=== PATIENT | female | born 1985 | race American Indian/Alaskan Native ===

== ENCOUNTER 2018-05-18 11:54 | Day surgery (SDC) | payer MEDICAID ==
[2018-05-18] MEDS ORDERED: TORADOL IV PRN (13:45)
[2018-05-18] MEDS ORDERED: DEMEROL IV PRN (13:45)
[2018-05-18] MEDS ORDERED: ZOFRAN IV PRN (13:45)
--- NOTE | 2018-05-18 13:46 | Anesthesia Day of Surgery ---
Anesthesia Day of Surgery - Day of Surgery Patient Examined: Yes Patient H&P Reviewed: Yes Patient is NPO: Yes
--- NOTE | 2018-05-18 13:46 | Anesthesia Consultation ---
Anesthesia Consult and Med Hx Date of service: 05/18/18 - Airway Anesthetic Teeth Evaluation: Good ROM Head & Neck: Adequate Mental/Hyoid Distance: Adequate Mallampati Class: Class I Intubation Access Assessment: Good - Pulmonary Exam CTA: Yes - Cardiac Exam Cardiac Exam: RRR - Pre-Operative Health Status ASA Pre-Surgery Classification: ASA1 Proposed Anesthetic Plan: General (GA with LMA ok) - Pulmonary Hx Smoking: No Hx Asthma: Yes ( CHILD ONLY) Hx Sleep Apnea: No (GRIFFIN PRE SCREEN NEGATIVE) - Cardiovascular System Hx Hypertension: No - Other Systems Hx Cancer: No
[2018-05-18] MEDS ORDERED: LACTATED RINGERS 1,000 ML IV SCH (14:00)
[2018-05-18] MEDS ORDERED: VERSED IV NR (14:00)
[2018-05-18] MEDS ORDERED: DILAUDID IV PRN (14:36)
[2018-05-18] MEDS ORDERED: SUBLIMAZE ONE (15:16)
[2018-05-18] MEDS ORDERED: XYLOCAINE MPF 2% ONE ×2 (15:16→16:05)
[2018-05-18] MEDS ORDERED: DIPRIVAN 10 MG/ML IV ONE (15:17)
[2018-05-18] MEDS ORDERED: TORADOL ONE (15:19)
[2018-05-18] MEDS ORDERED: ZOFRAN ONE (15:19)
[2018-05-18] MEDS ORDERED: DECADRON ONE (15:19)
[2018-05-18] MEDS ORDERED: NACL 0.9% IR ONE (16:00)
[2018-05-18] MEDS: DILAUDID IV PRN ×2 (16:40→16:55)
--- NOTE | 2018-05-18 16:48 | Post Anesthesia Evaluation ---
- Post Anesthesia Evaluation Patient Participated: Yes Airway Patent: Yes Stable Respiratory Function: Yes Nausea/Vomiting: No Temp > 96.8F: Yes Pain Manageable: Yes Adequeate Hydration: Yes Anesthesia Complications: No
--- NOTE | 2018-05-18 17:15 | Operative Report ---
Operative Report Operative Report: Preoperative diagnosis: Retained IUD. Postoperative diagnosis: same Procedure: 1. Hysteroscopy. 2. Removal of IUD. Anesthesia: General Surgeon: Dr. Olivier Production Support Specialist: none EBL minimal IVF: 1 liter of RL Complications: none Procedure details: Risks, benefits, and alternatives of the procedure were discussed in detail with the patient which included but not limited to the risk of infection, hemorrhage requiring blood transfusion, and uterine perforation. The patient expressed understanding, her questions were answered, and she gave informed consent. The patient was taken to the operating room with an IV fluid infusing Ringer's lactate. In the operating room, she was placed in a dorsal supine position and given general anesthesia. Then, she was placed on the stirrups in the dorsal lithotomy position. The perineum, vagina, and cervix were washed and she was prepared and draped in usual sterile fashion. Examination under anesthesia revealed normal external genitalia and vagina, the cervix was closed and posterior and no gross lesions, active menstrual bleeding, the IUD string was not visualized. A weighted speculum was placed on the posterior vaginal wall, the anterior lip of the cervix was grasped with a single-tooth tenaculum, the cervical os was dilated, the hysteroscope was introduced into the uterine cavity. It revealed the IUD impacted at the fundal region of the uterus. A forcep was used to remove the IUD intact. The hysteroscope was then removed from the uterine cavity and the other instruments were removed from the cervix and the vagina. The counts of laps, needles, sponges, and instruments were correct 2. The patient tolerated the procedure well. She was awakened from the anesthesia and taken to the recovery room in stable condition.
[2018-05-18 17:46] VITALS: BP 128/89
== END 2018-05-18 11:55 | disposition home or self-care (01) ==
LOC: OR 11:54
PROVIDERS: ATTEND Obstetrics & Gynecology
DX: T83.89XA Other specified complication of genitourinary prosthetic devices, implants and grafts, initial encounter (principal); J45.909 Unspecified asthma, uncomplicated; F41.9 Anxiety disorder, unspecified; Z80.3 Family history of malignant neoplasm of breast; Y83.8 Other surgical procedures as the cause of abnormal reaction of the patient, or of later complication, without mention of misadventure at the time of the procedure; Y92.89 Other specified places as the place of occurrence of the external cause
CPT/HCPCS: 58562; 81025; 88302; A4217; J1100; J1170; J1885; J2250; J2405; J2704; J3010; J7120

== ENCOUNTER 2019-08-03 11:23 | Inpatient (IN) | payer MEDICAID ==
[2019-08-03] MEDS ORDERED: LACTATED RINGERS 1,000 ML ONE (12:23)
[2019-08-03] MEDS ORDERED: LACTATED RINGERS 1,000 ML IV SCH ×2 (13:00→15:00)
--- NOTE | 2019-08-03 13:33 | Ultrasound Report ---
ULTRASOUND BIOPHYSICAL PROFILE INDICATION: well being. COMPARISON: None available. FINDINGS: heart rate is 139 beats per minute. breathing movement = 2 Gross body movement = 2 tone = 2 Qualitative amniotic fluid volume = 2 IMPRESSION: biophysical profile = 05/04 Signer Name: River Norton Jr, MD Signed: 08/03/2019 1:29 PM Workstation Name: [id number]
[2019-08-03 14:12] LABS: Hematocrit 30.3 % (30.3-42.9); Hemoglobin 9.9 gm/dl (10.1-14.3); Mean Corpuscular HGB Conc 33 % (30-34); Mean Corpuscular Volume 77 fl (79-97); Platelet Count 194 K/mm3 (140-440); Red Blood Count 3.93 M/mm3 (3.65-5.03); Red Cell Distribution Width 16.2 % (13.2-15.2)
--- NOTE | 2019-08-03 14:47 | Ultrasound Report ---
OB ULTRASOUND >= 14 WEEKS FETUS INDICATION: Estimated weight. well-being COMPARISON: None FINDINGS: A single gestation intrauterine is present with cephalic presentation. The placenta was not evaluated. heart tones measure 147 bpm. Amniotic fluid volume is low normal with a fluid index of 7.6 cm. anatomical survey was not performed. Biparietal diameter is 8.8 cm which equals 35 weeks 4 days. Head circumference is 31.9 cm which equals 36 weeks 0 days. Abdominal circumference is 34.3 cm which equals 38 weeks 2 days. Femur length is 7.3 cm which equals 37 weeks 4 days. Overall estimated sonographic age is 36 weeks 6 days. HC/AC ratio: 0.93 Cephalic index: 82.6 Estimated weight: 3221 g +/- 4 177 g. 36 percentile. IMPRESSION: Viable single intrauterine as described. No acute abnormality is detected. Signer Name: River Norton Jr, MD Signed: 08/03/2019 2:43 PM Workstation Name: [id number]
[2019-08-03] MEDS ORDERED: METOCLOPRAMIDE 10 MG/2 ML INJ IV SCH (15:00)
[2019-08-03] MEDS ORDERED: BICITRA ORAL LIQD 30ML PO SCH (15:00)
[2019-08-03] MEDS ORDERED: FAMOTIDINE 20 MG/2 ML INJ IV SCH (15:00)
[2019-08-03] MEDS ORDERED: BICITRA ORAL LIQD 30ML ONE (15:05)
--- NOTE | 2019-08-03 15:23 | Anesthesia Consultation ---
Anesthesia Consult and Med Hx Date of service: 08/03/19 - Airway Anesthetic Teeth Evaluation: Good ROM Head & Neck: Adequate Mental/Hyoid Distance: Adequate Mallampati Class: Class II Intubation Access Assessment: Probably Good - Pulmonary Exam CTA: Yes - Cardiac Exam Cardiac Exam: RRR - Pre-Operative Health Status ASA Pre-Surgery Classification: ASA2, Emergency Proposed Anesthetic Plan: Spinal - Pulmonary Hx Smoking: No Hx Asthma: No Hx Sleep Apnea: No (GRIFFIN PRE SCREEN NEGATIVE) - Cardiovascular System Hx Hypertension: No - Central Nervous System Hx Seizures: No Hx Psychiatric Problems: No - Endocrine Hx Renal Disease: No Hx Hypothyroidism: No Hx Hyperthyroidism: No - Hematic Hx Anemia: No Hx Sickle Cell Disease: No - Other Systems Hx Alcohol Use: No Hx Cancer: No
--- NOTE | 2019-08-03 15:24 | Anesthesia Day of Surgery ---
Anesthesia Day of Surgery - Day of Surgery Patient Examined: Yes Patient H&P Reviewed: Yes Patient is NPO: No (Last food 1000)
[2019-08-03] MEDS ORDERED: ONDANSETRON 4 MG/2 ML INJ ONE (15:30)
[2019-08-03] MEDS ORDERED: DEXMEDETOMIDINE 200 MCG/2 ML VIAL IV ONE (15:30)
[2019-08-03] MEDS ORDERED: OXYTOCIN 10 UNIT/1 ML INJ ONE (15:30)
[2019-08-03] MEDS ORDERED: BUPIVACAINE/PF (0.5%) 5 MG/1 ML 30 ML VIAL INFILTRATI ONE (15:30)
--- NOTE | 2019-08-03 15:37 | History and Physical Report ---
History of Present Illness Date of examination: 08/03/19 Date of admission: 08/03/19 11:24 Chief complaint: Contractions at 38+5wks History of present illness: by cesareans. YUSUF . Past History Past Surgical History: section - Obstetrical History Expected Date of Delivery: 08/12/19 Actual Gestation: 38 Week(s) 5 Day(s) : 3 Para: 2 Medications and Allergies Allergies Allergy/AdvReac Type Severity Reaction Status Date / Time No Known Allergies Allergy Verified 08/03/19 15:24 Home Medications Medication Instructions Recorded Confirmed Last Taken Type No Known Home Medications [No 05/12/18 05/12/18 Unknown History Reported Home Medications] Active Meds: Active Medications Citric Acid/Sodium Citrate (Bicitra) 30 ml PO ONCE LIZETTE Stop: 08/04/19 14:59 Famotidine (Pepcid) 20 mg IV ONCE LIZETTE Stop: 08/04/19 14:59 Lactated Ringer's (Lactated Ringers) 1,000 mls @ 150 mls/hr IV DIRECT LIZETTE Oxytocin/Sodium Chloride (Pitocin/Ns 20 Unit/1000ml Drip) 20 units in 1,000 mls @ 0 mls/hr IV TITR LIZETTE Lactated Ringer's (Lactated Ringers) 1,000 mls @ 2,250 mls/hr IV PREOP LIZETTE Stop: 08/04/19 15:27 Cefazolin Sodium (Ancef/Sterile Water 2 Gm/20 Ml) 2 gm in 20 mls @ 80 mls/hr IV PREOP NR; Protocol Cefazolin Sodium (Ancef/Sterile Water 2 Gm/20 Ml) 2 gm in 20 mls @ 80 mls/hr IV PREOP NR; Protocol Metoclopramide HCl (Reglan) 10 mg IV ONCE LIZETTE Stop: 08/04/19 14:59 Review of Systems All systems: negative - Vital Signs Vital signs: Vital Signs Pulse BP 108 H 126/76 08/03/19 11:56 08/03/19 11:56 Temp Pulse Resp BP Pulse Ox 98.3 F 90 16 124/84 08/03/19 11:57 08/03/19 13:52 08/03/19 11:57 08/03/19 13:52 - Physical Exam Lungs: Positive: Normal air movement Abdomen: Positive: normal appearance, soft, distention. Negative: tenderness - Obstetrical FHR: category 2 (decels) Results Result Diagrams: 08/03/19 Unknown Abnormal lab results 08/03/19 Range/Units Unknown Hgb 9.9 L (10.1-14.3) gm/dl MCV 77 L (79-97) fl MCH 25 L (28-32) pg RDW 16.2 H (13.2-15.2) % All other labs normal. Assessment and Plan - Patient Problems (1) with 38 to 41 completed weeks gestation Current Visit: Yes Status: Acute (2) Previous delivery affecting , antepartum Current Visit: Yes Status: Acute Plan to address problem: For delivery, imminently. Risks were fully discussed and questions were fully answered. patient gave her consent.
[2019-08-03] MEDS ORDERED: ceFAZolin/Water 2 GM/20 ML 2 GM/20 ML SYRINGE IV ONE (15:43)
[2019-08-03] MEDS ORDERED: OXYTOCIN 20 UNIT/1000ML DRIP 20 UNITS/1,000 ML BAG IV SCH ×2 (16:00→18:00)
[2019-08-03] MEDS ORDERED: ceFAZolin/Water 2 GM/20 ML 2 GM/20 ML SYRINGE IV NR ×2 (16:00)
[2019-08-03] MEDS ORDERED: ceFAZolin/STERILE WATER 2 GM/20 ML SYRINGE IV ONE (16:04)
[2019-08-03] MEDS ORDERED: WATER FOR IRRIG STERILE 1,500 ML BOTTLE IR ONE (16:12)
[2019-08-03] MEDS ORDERED: SODIUM CHLORIDE 0.9% IRR 1,500 ML BOTTLE IR ONE (16:12)
[2019-08-03] MEDS ORDERED: PHENYLEPHRINE/NS 1,000 MCG/10 ML SYRINGE (OR USE) IV ONE (16:28)
[2019-08-03] MEDS ORDERED: KETOROLAC 30 MG/1 ML INJ ONE (16:53)
[2019-08-03] MEDS ORDERED: LANOLIN/ZINC/DIMETHICONE (LANSINOH) 7 GM TP PRN (17:01)
[2019-08-03] MEDS ORDERED: WITCH HAZEL/ GLYCERIN PAD TP PRN (17:01)
[2019-08-03] MEDS ORDERED: ONDANSETRON 4 MG/2 ML INJ IV PRN ×2 (17:01→17:14)
[2019-08-03] MEDS ORDERED: HYDROcodone/ACETAMINOPHEN 5-325 MG TAB PO PRN (17:01)
[2019-08-03] MEDS ORDERED: ACETAMINOPHEN 325 MG TAB PO PRN (17:01)
[2019-08-03] MEDS ORDERED: MORPHINE 4 MG/1 ML INJ IV PRN (17:01)
[2019-08-03] MEDS ORDERED: NALOXONE 0.4 MG/1 ML INJ IV PRN ×2 (17:01→17:14)
--- NOTE | 2019-08-03 17:08 | Operative Report ---
Operative Report Operative Report: Date of surgery: 08/03/2019 Preoperative diagnoses: 38 weeks and 5 days gestation, 2 previous sections, maine, category 2 tracing. Postoperative diagnoses: The same. Operation: Lower segment transverse delivery Surgeon:Jah Bush MD Multiple Drum Sander: YARELI Black Anesthesia: Spinal block Estimated blood loss: 500 mL Complications: None Findings: There was a live baby girl in cephalic presentation weighing 6 lbs. 10 oz. with scores of 8/8. The ovaries, fallopian tubes as well as the uterus were all unremarkable gravid structures. There were no adhesions within the pelvis. Procedure in detail: The patient was taken to the operating room and given a spinal block. Patient was placed in the straight supine position and a Simon catheter was inserted. The patient was prepped in the abdomen. The drapes were placed. A timeout was done. With the go ahead from the pyridine recovery operator, a Pfannenstiel incision was made. This incision was carried across the subcutaneous layer to the fascia which was also divided transversely. The recti abdominis muscle flaps were stripped from the fascia using a combination of blunt and sharp dissections. The muscles were in the midline to gain access to the anterior parietal peritoneum which was divided after excluding any underlying viscera. The access to the peritoneal cavity was then widened by manual stretching. The bladder blade was applied. The utero vesicle peritoneal flap was divided transversely allowing the bladder to be displaced caudally. The uterine incision was placed in the lower segment transversely. The uterine incision was carried to the decidual layer. The uterine incision was extended on both sides using the bandage scissors. The amniotic sac was ruptured with clear fluid. The head was lifted out of the false maternal pelvis and delivered through the incision using fundal pressure. The airways were bulb suctioned beginning with the mouth. Continuing fundal pressure combined with traction on the mandibular processes of the jaw delivered the rest of the baby. The umbilical cord was double clamped and divided. The baby was carefully transferred to the pediatric team. The placenta was manually removed from the uterine cavity. The uterine cavity was explored and was empty of any placental remnants. The uterine incision was repaired in 2 layers with #1 Vicryl. The surgical line on the uterus was hemostatic. Blood and clots were cleared from the peritoneal cavity. The anterior parietal peritoneum was repaired with #1 Vicryl. The fascia was repaired with #1 Vicryl. The subcutaneous layer was made hemostatic using the Bovie before the skin was closed subcuticularly with 4-0 Vicryl. There were no complications. The estimated blood loss was 500 mL. All sponges and instrument counts were correct. Patient was safely transferred to the recovery room.
[2019-08-03] MEDS ORDERED: PROMETHAZINE 25 MG TAB PO PRN (17:14)
[2019-08-03] MEDS ORDERED: PROMETHAZINE 25 MG RECT SUPP PR PRN (17:14)
--- NOTE | 2019-08-03 17:14 | Post Anesthesia Evaluation ---
- Post Anesthesia Evaluation Patient Participated: Yes Airway Patent: Yes Stable Respiratory Function: Yes Nausea/Vomiting: No Temp > 96.8F: Yes Pain Manageable: Yes Adequeate Hydration: Yes Anesthesia Complications: No Block Receding Appropriately: Yes
[2019-08-03] MEDS ORDERED: NalbUPHINE 10 MG/1 ML INJ IV PRN (17:15)
[2019-08-03] MEDS: ceFAZolin/NS 1 GM/50 ML 1 GM/50 ML BAG IV SCH (22:00)
[2019-08-03] MEDS: IBUPROFEN 800 MG TAB PO SCH (22:01)
[2019-08-04] MEDS: ACETAMINOPHEN 325 MG TAB PO SCH ×5 (00:34→23:35)
[2019-08-04 06:13] LABS: Hematocrit 26.1 % (30.3-42.9); Hemoglobin 8.7 gm/dl (10.1-14.3)
[2019-08-04] MEDS: ceFAZolin/NS 1 GM/50 ML 1 GM/50 ML BAG IV SCH (06:22)
[2019-08-04] MEDS: IBUPROFEN 800 MG TAB PO SCH ×4 (06:29→23:37)
--- NOTE | 2019-08-04 09:26 | Progress Note ---
Assessment and Plan - Patient Problems (1) S/P repeat low transverse Current Visit: Yes Status: Acute Plan to address problem: Continue routine PP orders Keep dressing dry and intact Anticipate d/c home in 48 hrs (2) Anemia Current Visit: Yes Status: Acute Qualifiers: Anemia type: iron deficiency Plan to address problem: Asymptomatic Continue daily oral iron supplementation Increase iron rich foods into diet Subjective - Subjective Date of service: 08/04/19 Principal diagnosis: Repeat C/S Interval history: See admission H & P; OB operative note and PP progress notes Patient reports: appetite normal, voiding normally, pain well controlled (with medications), flatus, ambulating normally, no bowel movement [place]: doing well, bottle feeding (and ) Objective - Vital Signs Latest vital signs: Vital Signs Temp Pulse Resp BP BP BP Pulse Ox 08/04/19 00:00 98.6 F 74 18 104/72 08/03/19 19:30 98.7 F 77 18 116/65 08/03/19 18:32 98.3 F 63 20 115/71 08/03/19 18:11 98.1 F 73 18 126/86 98 08/03/19 17:55 72 18 114/79 96 08/03/19 17:40 71 20 110/79 97 08/03/19 17:25 71 18 107/70 97 08/03/19 17:20 76 16 105/76 98 08/03/19 17:16 74 16 111/80 99 08/03/19 17:08 97.6 F 92 H 14 93/46 98 08/03/19 13:52 90 124/84 08/03/19 11:57 98.3 F 108 H 16 126/76 08/03/19 11:56 108 H 126/76 Intake and Output 08/03/19 08/04/19 08/04/19 23:59 07:59 15:59 Intake Total 1850 300 Output Total 250 650 Balance 1600 -350 Intake: IV 1550 ANCEF/NS 1 GM/50 ML 1 gm 50 In 50 ml @ 100 mls/hr IV Q8H [facility] Rx#:[id number] Intake, Free Water 300 300 Output: Urine 250 650 Indwelling Catheter 650 Other: Total, Output Amount 650 - Exam Breasts: Present: normal Cardiovascular: Present: Regular rate Lungs: Present: Normal air movement Abdomen: Present: soft, tenderness Uterus: Present: firm, fundal height at umbilicus Extremities: Present: normal Deep Tendon Reflex Grade: Normal +2 Incision: Present: dressed (no shadow drainage or bleeding noted) - Labs Labs: Abnormal lab results 08/03/19 08/04/19 Range/Units Unknown 05:55 Hgb 9.9 L 8.7 L (10.1-14.3) gm/dl Hct 26.1 L (30.3-42.9) % MCV 77 L (79-97) fl MCH 25 L (28-32) pg RDW 16.2 H (13.2-15.2) %
[2019-08-04] MEDS: HYDROcodone/ACETAMINOPHEN 5-325 MG TAB PO PRN ×3 (09:55→21:17)
[2019-08-04] MEDS: PRENATAL VIT27-FE FUMARATE-FOLIC ACID VIT TAB PO SCH (09:55)
[2019-08-04] MEDS: FERROUS SULFATE 325 MG TAB PO SCH (09:55)
[2019-08-04] MEDS: IBUPROFEN 800 MG TAB PO PRN (23:37)
[2019-08-05] MEDS: HYDROcodone/ACETAMINOPHEN 5-325 MG TAB PO PRN ×3 (03:25→23:09)
[2019-08-05] MEDS: IBUPROFEN 800 MG TAB PO SCH (05:04)
[2019-08-05] MEDS: ACETAMINOPHEN 325 MG TAB PO SCH (06:15)
[2019-08-05] MEDS: IBUPROFEN 800 MG TAB PO PRN ×2 (08:28→21:09)
[2019-08-05] MEDS: FERROUS SULFATE 325 MG TAB PO SCH (08:29)
[2019-08-05] MEDS: PRENATAL VIT27-FE FUMARATE-FOLIC ACID VIT TAB PO SCH (08:29)
--- NOTE | 2019-08-05 13:04 | Progress Note ---
Assessment and Plan A: /postop day 2 S/P repeat section. Anemia secondary to and blood loss. P: Supplement with oral iron. Encouraged ambulation. Continue current management. Subjective - Subjective Date of service: 08/05/19 Principal diagnosis: /postop day 2 S/P repeat section Interval history: /postop day 2 S/P repeat section. Doing well. Patient reports small amount of lochia. Voiding without difficulty, ambulating well, tolerating a regular diet without nausea or vomiting. Patient denies headache, dizziness, chest pain, cough, shortness of breath, leg pain, or heavy bleeding. Patient reports: appetite normal, voiding normally, pain well controlled, flatus, ambulating normally, no dizzy ambulation, no nauseated : doing well Objective - Vital Signs Latest vital signs: Vital Signs Temp Pulse Resp BP BP Pulse Ox 08/05/19 12:20 98.1 F 85 16 123/92 99 08/05/19 08:16 98.1 F 85 20 134/90 100 08/05/19 05:04 18 08/05/19 03:25 18 08/05/19 00:07 98.5 F 82 20 123/87 100 08/04/19 23:37 18 08/04/19 21:17 18 08/04/19 15:45 98 F 79 20 92/50 08/04/19 13:20 97.3 F L 88 20 115/80 Intake and Output 08/04/19 08/05/19 08/05/19 23:59 07:59 15:59 Intake Total 240 360 Output Total 500 Balance -260 360 Intake: Oral 240 360 Output: Urine 500 Void 500 Other: Total, Intake Amount 240 360 Total, Output Amount 500 # Voids Void 1 - Exam Cardiovascular: Present: Regular rate, Normal S1, Normal S2, No murmurs Lungs: Present: Clear to auscultation Abdomen: Present: normal appearance, soft, normal bowel sounds. Absent: distention, tenderness, guarding, rigidity Uterus: Present: normal, firm, fundal height below umbilicus. Absent: bogginess, tenderness Extremities: Present: normal. Absent: tenderness, edema Incision: Present: normal, dry, intact
[2019-08-06] MEDS: IBUPROFEN 800 MG TAB PO PRN ×3 (03:35→18:48)
[2019-08-06] MEDS: HYDROcodone/ACETAMINOPHEN 5-325 MG TAB PO PRN ×3 (05:34→22:21)
[2019-08-06] MEDS: PRENATAL VIT27-FE FUMARATE-FOLIC ACID VIT TAB PO SCH (10:00)
[2019-08-06] MEDS: FERROUS SULFATE 325 MG TAB PO SCH (10:00)
--- NOTE | 2019-08-06 14:51 | Progress Note ---
Assessment and Plan A: /postop day 3 S/P repeat section. Anemia secondary to blood loss. Elevated blood pressure. P: Monitor BPs. PreE labs. Continue iron supplementation. Subjective - Subjective Date of service: 08/06/19 Principal diagnosis: /postop day 3 S/P repeat section Interval history: /postop day 3 S/P repeat section. BP mildly elevated. Patient reports small amount of lochia. Voiding without difficulty, ambulating well, tolerating a regular diet without nausea or vomiting, passing gas. Patient denies headache, visual disturbance, swelling, dizziness, chest pain, cough, shortness of breath, leg pain, or heavy bleeding. Patient reports: appetite normal, voiding normally, pain well controlled, flatus, ambulating normally, no dizzy ambulation, no bowel movement, no nauseated [place]: doing well Objective - Vital Signs Latest vital signs: Vital Signs Temp Pulse Resp BP BP Pulse Ox 08/06/19 08:10 98 F 96 H 20 143/91 08/06/19 05:34 18 08/06/19 03:35 18 08/06/19 00:09 97.6 F 83 18 126/87 100 08/05/19 23:09 18 08/05/19 21:09 18 08/05/19 16:10 98.6 F 97 H 20 115/88 98 Intake and Output 08/05/19 08/06/19 08/06/19 23:59 07:59 15:59 Intake Total 600 360 120 Balance 600 360 120 Intake: Oral 240 120 120 Intake, Free Water 360 240 Other: Total, Intake Amount 240 120 120 # Voids Void 2 1 - Exam Cardiovascular: Present: Regular rate, Normal S1, Normal S2, No murmurs Lungs: Present: Clear to auscultation Abdomen: Present: normal appearance, soft, normal bowel sounds. Absent: distention, tenderness, guarding, rigidity Uterus: Present: normal, firm, fundal height below umbilicus. Absent: bogginess, tenderness Extremities: Present: normal. Absent: tenderness, edema Incision: Present: normal, dry, intact
[2019-08-06 16:12] LABS: Bilirubin,Urine NEG (Negative); Blood,Urine MOD (Negative); Color,Urine Straw (Yellow); Protein,Urine <15 mg/dL mg/dL (Negative); Urobilinogen,Urine < 2.0 mg/dL (<2.0)
[2019-08-06 17:10] LABS: Hematocrit 26.7 % (30.3-42.9); Hemoglobin 8.7 gm/dl (10.1-14.3); Mean Corpuscular HGB Conc 33 % (30-34); Mean Corpuscular Volume 78 fl (79-97); Platelet Count 220 K/mm3 (140-440); Red Blood Count 3.42 M/mm3 (3.65-5.03); Red Cell Distribution Width 16.9 % (13.2-15.2)
[2019-08-06 17:17] LABS: Alanine Aminotransferase 28 units/L (7-56); Albumin 3.1 g/dL (3.9-5); BUN/Creatinine Ratio 9; Blood Urea Nitrogen 6 mg/dL (7-17); Calcium 8.9 mg/dL (8.4-10.2); Hemolysis Index 0; Uric Acid 4.9 mg/dL (3.5-7.6)
[2019-08-07] MEDS: IBUPROFEN 800 MG TAB PO PRN ×2 (05:38→14:23)
[2019-08-07] MEDS: HYDROcodone/ACETAMINOPHEN 5-325 MG TAB PO PRN ×2 (08:08→14:24)
[2019-08-07] MEDS: PRENATAL VIT27-FE FUMARATE-FOLIC ACID VIT TAB PO SCH (08:10)
[2019-08-07] MEDS: FERROUS SULFATE 325 MG TAB PO SCH (08:10)
--- NOTE | 2019-08-07 13:56 | Progress Note ---
Assessment and Plan - Patient Problems (1) S/P repeat low transverse Current Visit: Yes Status: Acute Plan to address problem: POD 4 - stable Discharge to home today Follow up at [facility] as needed or in 1 week for incision check (2) Single live Current Visit: Yes Status: Acute (3) Anemia due to blood loss, acute Current Visit: Yes Status: Acute Plan to address problem: Asymptomatic Continue iron therapy Subjective - Subjective Date of service: 08/07/19 Principal diagnosis: POD #4; s/p Repeat LTCS Interval history: see H&P, Operative Report and PP/[employer] Progress Notes Patient reports: appetite normal, voiding normally, pain well controlled, flatus, ambulating normally, no dizzy ambulation, no bowel movement : doing well Objective - Vital Signs Latest vital signs: Vital Signs Temp Pulse Pulse Resp BP BP BP 08/07/19 11:46 97.9 F 84 20 113/84 08/07/19 07:51 97.9 F 96 H 20 107/77 08/07/19 06:22 18 08/07/19 05:38 18 08/06/19 23:21 18 08/06/19 23:03 98.3 F 86 20 113/83 08/06/19 22:21 18 08/06/19 15:35 97.2 F L 73 20 117/73 08/06/19 14:57 76 109/81 08/06/19 14:54 76 133/92 Pulse Ox 08/07/19 11:46 97 08/07/19 07:51 98 08/07/19 06:22 08/07/19 05:38 08/06/19 23:21 08/06/19 23:03 98 08/06/19 22:21 08/06/19 15:35 08/06/19 14:57 08/06/19 14:54 Intake and Output 08/06/19 08/07/19 08/07/19 23:59 07:59 15:59 Intake Total 240 240 Balance 240 240 Intake: Oral 120 240 Intake, Free Water 120 Other: Total, Intake Amount 120 240 # Voids Void 1 1 - Exam Cardiovascular: Present: Regular rate Abdomen: Present: normal appearance, soft Vulva: both: normal Uterus: Present: normal, firm, fundal height below umbilicus Extremities: Present: normal Incision: Present: normal, dry, intact, other (steri strips in place) Comments: scant lochia - Labs Labs: Abnormal lab results 08/06/19 08/06/19 Range/Units 15:45 15:45 RBC 3.42 L (3.65-5.03) M/mm3 Hgb 8.7 L (10.1-14.3) gm/dl Hct 26.7 L (30.3-42.9) % MCV 78 L (79-97) fl MCH 25 L (28-32) pg RDW 16.9 H (13.2-15.2) % BUN 6 L (7-17) mg/dL AST 69 H (5-40) units/L Alkaline Phosphatase 203 H (35-129) units/L Lactate Dehydrogenase 258 H (91-180) units/L Albumin 3.1 L (3.9-5) g/dL
--- NOTE | 2019-08-07 13:59 | Discharge Summary ---
Providers - Providers Date of Admission: 08/03/19 11:24 Date of discharge: 08/07/19 Attending physician: EMERSON PEPPER MD Primary care physician: EMERSON PEPPER MD Hospitalization Reason for admission: section, IUP at term Delivery: Procedure: repeat low transverse Episiotomy: none Laceration: none Incision: normal, dry, intact, other (steri strips in place) Other procedures: none complications: none Discharge diagnosis: IUP at term delivered baby: female Hospital course: Uncomplicated Condition at discharge: Stable Disposition: DC- TO HOME OR SELFCARE - Discharge Diagnoses (1) S/P repeat low transverse Status: Acute (2) Single live Status: Acute (3) Anemia due to blood loss, acute Status: Acute Comment: Asymptomatic Continue iron therapy Plan - Discharge Medications Prescriptions: Ferrous Sulfate [Feosol 325 MG tab] 325 mg PO QDAY #30 tablet Ibuprofen [Motrin 800 MG tab] 800 mg PO Q6H PRN #30 tablet PRN Reason: Pain, Mild (1-3) HYDROcodone/APAP 5-325 [[place] 5/325] 1 - 2 each PO Q4HR PRN #30 tablet PRN Reason: Pain - Provider Discharge Summary Activity: routine, no sex for 6 weeks, no heavy lifting 4 weeks, no strenuous exercise Diet: routine Instructions: routine Additional instructions: [] Smoking cessation referral if applicable(refer to patient education folder for contact #) [] Refer to [facility] Booklet Call your doctor immediately for: * Fever > 100.5 * Heavy vaginal bleeding ( >1 pad per hour) * Severe persistent headache * Shortness of breath * Reddened, hot, painful area to leg or breast * Drainage or odor from incision. * Keep incision clean and dry at all times and follow doctor's instructions regarding bathing/showering - Follow up plan Follow up: EMERSON PEPPER MD [Primary Care Provider] - 7 Days (Follow up at [facility] as needed or in 1 week for incision check) Forms: [facility] Discharge Summary
[2019-08-07 16:42] VITALS: BP 126/88
== END 2019-08-07 16:30 | disposition home or self-care (01) | DRG 765 ==
LOC: TRG 11:23 → OBSVTOIN 11:24 → LD 11:24 → TRG 11:24 → LD 13:31 → OB 18:37
PROVIDERS: ADMIT Obstetrics & Gynecology; ATTEND Obstetrics & Gynecology
PROC: 10D00Z1 Extraction of Products of Conception, Low, Open Approach (ICD-10-PCS; principal; 2019-08-03)
DX: O34.211 Maternal care for low transverse scar from previous cesarean delivery (principal); D62 Acute posthemorrhagic anemia; Z3A.38 38 weeks gestation of pregnancy; O99.03 Anemia complicating the puerperium; Z37.0 Single live birth
CPT/HCPCS: 36415; 76816; 76819; 80053; 81001; 83615; 84550; 85014; 85018; 85027; 86850; 86900; 86901; G0378; J0690; J1885; J2270; J2370; J2405; J2590; J2765; J3490; J7120